=== PATIENT | male | born 1960 | race Caucasian/White ===

== ENCOUNTER 2020-02-23 11:47 | Outpatient (REF) | payer OTHER, SELFPAY | END 2020-02-23 11:48 | disposition home or self-care (01) | LOC: HO.LNP 11:47 | PROVIDERS: Visit Provider Internal Medicine | DX: Z20.828 Contact with and (suspected) exposure to other viral communicable diseases (principal); R50.9 Fever, unspecified | CPT/HCPCS: 87635 ==

== ENCOUNTER 2021-04-10 14:35 | Outpatient (REF) | payer OTHER, SELFPAY ==
[2021-04-10 15:39] LABS: Influenza A PCR NEGATIVE (Negative); Influenza B PCR NEGATIVE (Negative); Resp Syncy Virus RNA Qual PCR NEGATIVE (Negative); SARS COV2 PCR INHOUSE NEGATIVE (Negative)
== END 2021-04-10 14:36 | disposition home or self-care (01) ==
LOC: HO.LNP 14:35
PROVIDERS: Visit Provider Internal Medicine
DX: R11.0 Nausea (principal); Z20.822 Contact with and (suspected) exposure to COVID-19
CPT/HCPCS: 0241U

== ENCOUNTER 2021-04-17 16:43 | Outpatient (REF) | payer OTHER, SELFPAY ==
--- NOTE | ~2021-04-17 | XR_ITS ---
EXAMINATION: XR CHEST CLINICAL INFORMATION: Cough. Hypertension. Rule out infiltrate. COMPARISON: Previous chest x-rays most recent July 2015 TECHNIQUE: 2 views of the chest were obtained. FINDINGS: The cardiac and mediastinal contours are normal. The lungs are clear. There is no pleural effusion or pneumothorax. There are degenerative changes of the spine. XR/XR chest 2V IMPRESSION: No evidence for acute disease in the chest.
[2021-04-17 16:57] LABS: MANUAL DIFF FLAG NO
[2021-04-17 18:13] LABS: Basophils Percent Auto 0.4 % (0-2); Eosinophils Absolute Auto 0.3 X10*3/uL (0.0-0.4); Eosinophils Percent Auto 2.7 % (0-4); Hematocrit 47.3 % (42.0-52.0); Hemoglobin 16.3 g/dl (14.0-18.0); Imm Gran Abs Auto 0.04 X10*3/uL (0.00-0.03); Imm Gran Pct Auto 0.4 % (0.0-0.4); Lymphocytes Absolute Auto 2.9 X10*3/uL (1.2-4.9); Lymphocytes Percent Auto 26.8 % (20-40); Mean Corpuscular HGB Conc 34.5 g/dl (31.0-36.0); Mean Corpuscular Hemoglobin 31.7 pg (27.0-33.0); Mean Platelet Volume 9.7 fL (9.4-12.4); Monocytes Absolute Auto 0.9 X10*3/uL (0.1-1.2); Monocytes Percent Auto 8.4 % (2-11); Neutrophils Absolute Auto 6.6 x10*3/uL (2.0-8.3); Neutrophils Percent Auto 61.3 % (45-73); Platelet Count 288 X10*3/uL (160-400); Red Blood Count 5.14 X10*6/uL (4.60-5.80); Red Cell Distribution Width 12.5 % (11.0-16.0); White Blood Count 10.7 X10*3/uL (4.8-10.8)
[2021-04-17 18:35] LABS: Alanine Aminotransferase 37 U/L (0-40); Albumin Level 4.6 g/dL (3.5-5.0); Alkaline Phosphatase 85 U/L (39-117); Anion Gap 14 (12-20); Aspartate Amino Transferase 27 U/L (5-37); Bilirubin Total 0.6 mg/dL (0.0-1.0); Blood Urea Nitrogen 24 mg/dL (9-16); C Reactive Protein 0.33 mg/dL (< or = 0.50); Carbon Dioxide 28 mmol/L (22-29); Chloride 104 mmol/L (96-108); Estimated Glomerular Filt Rate > 60; Glucose Random 92 mg/dL (60-115); Potassium 4.3 mmol/L (3.3-5.1); Sodium 142 mmol/L (135-145); Total Protein 7.3 g/dL (6.5-8.0)
[2021-04-17 18:58] LABS: Thyroid Stimulating Hormone 1.06 uIU/mL (0.32-4.0)
== END 2021-04-17 16:44 | disposition home or self-care (01) ==
LOC: HO.XRAY 16:43
PROVIDERS: PCP Internal Medicine; Visit Provider Internal Medicine
DX: R05.9 Cough, unspecified (principal); I10 Essential (primary) hypertension; R63.5 Abnormal weight gain
CPT/HCPCS: 36415; 71046; 80053; 84443; 85025; 86140

== ENCOUNTER → 2021-11-21 15:35 | Outpatient (REF) | payer OTHER, SELFPAY | LOC: HO.SL 15:35 | PROVIDERS: PCP Internal Medicine; Visit Provider Internal Medicine | DX: G47.33 Obstructive sleep apnea (adult) (pediatric) (principal); R06.83 Snoring; R40.0 Somnolence | CPT/HCPCS: 95806 ==

== ENCOUNTER 2022-08-02 16:56 | Outpatient (REF) | payer BC, SELFPAY ==
[2022-08-02 17:07] LABS: MANUAL DIFF FLAG NO
[2022-08-02 17:59] LABS: Basophils Absolute Auto 0.1 X10*3/uL (0.0-0.2); Basophils Percent Auto 0.9 % (0-2); Eosinophils Absolute Auto 0.3 X10*3/uL (0.0-0.4); Hematocrit 42.6 % (42.0-52.0); Hemoglobin 14.9 g/dl (14.0-18.0); Imm Gran Abs Auto 0.01 X10*3/uL (0.00-0.03); Imm Gran Pct Auto 0.1 % (0.0-0.4); Lymphocytes Absolute Auto 3.3 X10*3/uL (1.2-4.9); Lymphocytes Percent Auto 35.7 % (20-40); Mean Corpuscular Volume 88.6 fL (80.0-98.0); Mean Platelet Volume 9.6 fL (9.4-12.4); Monocytes Absolute Auto 0.9 X10*3/uL (0.1-1.2); Monocytes Percent Auto 9.9 % (2-11); Neutrophils Absolute Auto 4.7 x10*3/uL (2.0-8.3); Neutrophils Percent Auto 50.4 % (45-73); Platelet Count 337 X10*3/uL (160-400); Red Blood Count 4.81 X10*6/uL (4.60-5.80); Red Cell Distribution Width 11.9 % (11.0-16.0); White Blood Count 9.3 X10*3/uL (4.8-10.8)
[2022-08-02 18:04] LABS: Alanine Aminotransferase 36 U/L (0-40); Albumin Level 4.9 g/dL (3.5-5.0); Alkaline Phosphatase 83 U/L (39-117); Anion Gap 13 (12-20); Aspartate Amino Transferase 30 U/L (5-37); Bilirubin Total 0.8 mg/dL (0.0-1.0); Blood Urea Nitrogen 26 mg/dL (9-16); Calcium 9.7 mg/dL (8.4-10.2); Carbon Dioxide 25 mmol/L (22-29); Chloride 103 mmol/L (96-108); Estimated Glomerular Filt Rate > 60; Glucose Random 89 mg/dL (60-115); Potassium 4.2 mmol/L (3.3-5.1); Sodium 137 mmol/L (135-145); Total Protein 7.2 g/dL (6.5-8.0)
[2022-08-02 18:07] LABS: Estimated Average Glucose 100 mg/dL; Hemoglobin A1c % 5.1 %
== END 2022-08-02 16:57 | disposition home or self-care (01) ==
LOC: HO.LAB 16:56
PROVIDERS: PCP Internal Medicine; Visit Provider Internal Medicine
DX: I25.10 Atherosclerotic heart disease of native coronary artery without angina pectoris (principal); I10 Essential (primary) hypertension; R79.89 Other specified abnormal findings of blood chemistry
CPT/HCPCS: 36415; 80053; 83036; 85025

== ENCOUNTER 2023-04-07 12:23 | Emergency (ER) | payer BC, SELFPAY ==
--- NOTE | ~2023-04-07 | XR_ITS ---
EXAMINATION: XR LUMBOSACRAL SPINE CLINICAL INFORMATION: Low back pain 11/25/2012 COMPARISON: Lumbar spine radiographs 05/10/2022 and 11/25/2012 TECHNIQUE: Three views of the lumbosacral spine. FINDINGS: There is straightening of the lumbar spine. There is anterior fixation at L5-S1 with interbody device. No fractures or bony destructive lesions are seen. Some mild spondylitic endplate changes are present. There is minimal disc space narrowing at L4-L5. Degenerative changes are seen at T11-T12. Multiple surgical clips present in the left abdomen. XR/XR lumbar spine 2-3V IMPRESSION: Mild degenerative changes as described above. Anterior fixation at L5-S1. No interval change when compared to 05/10/2022
[2023-04-07 12:39] VITALS: BP 118/64; PULSE 68; RESP 18; TEMP 36.3; O2SAT 98; BMI 30.4
--- NOTE | 2023-04-07 12:43 | ED.GENADULT ---
HPI - General Adult General Chief complaint: Back Pain/Injury Stated complaint: back pain/ diff walking Time Seen by Provider: 04/07/23 12:45 Source: patient and RN notes reviewed Mode of arrival: ambulatory Limitations: no limitations History of Present Illness HPI narrative: This is a 62-year-old male, with a history of back pain, SD with stent placement in February on prasugrel, presenting to the emergency department with complaints of acute on chronic low back pain since yesterday. Patient reports that he is currently being followed by [facility] and has a consultation with them on April 18 and anticipation for surgery in April. patient reports that he was at work yesterday lifting however does not remember specific lifting episode that would cause him to have this pain. He states that his pain gradually worsened over the course of last night. patient reports mid back pain that radiates down his posterior legs just inferior to his bilateral knees. Pain is constant and worsens with movement and with palpation. He states that this morning his pain has been severe and he is only able to take several steps without severe pain. He denies any saddle anesthesia. No urinary or bowel retention or incontinence. No fevers, chills, chest pain, shortness breast, abdominal pain, nausea, vomiting or diarrhea. Denies taking any medications at home to treat his current symptoms. He is currently on a pain patch which has been keeping his back pain within reasonable limits since November. No other complaints or concerns at this time. MD complaint: Back pain Onset (ago): day(s) Radiation: back Severity: moderate Quality: stabbing and aching Pain Consistency: constant Relieving factors: none Exacerbating factors: immobilization and movement Associated symptoms: denies other symptoms Treatments prior to arrival: none Related Data Home Medications Medication Instructions Recorded Confirmed fluoxetine 20 mg capsule 20 mg PO DAILY 10/31/21 losartan 50 mg tablet 50 mg PO DAILY 10/31/21 simvastatin 20 mg tablet 20 mg PO DAILY 10/31/21 testosterone 1 pump topical DAILY 10/31/21 Previous Rx's Medication Instructions Recorded acetaminophen 500 mg tablet 500 mg PO Q6H PRN pain #45 tabs 04/07/23 (Tylenol Extra Strength) oxycodone 5 mg tablet 5 mg PO Q6H PRN pain #10 tabs 04/07/23 prednisone 50 mg tablet 50 mg PO DAILY 5 days #5 tabs 04/07/23 Allergies Allergy/AdvReac Type Severity Reaction Status Date / Time Sulfa (Sulfonamide Allergy Unknown RASH Verified 04/07/23 12:38 Antibiotics) [SULFA(SULFONAMIDE ANTIBIOTICS)] Sulfo Lo Allergy Severe Hives Uncoded 01/11/22 16:00 Review of Systems Review of Systems: Yes all other systems are reviewed and are negative [facility] Past Medical History Attestation statement: The following information was validated with the patient. Medical History Retrognathia Social History Social History Patient Tobacco Use Status: Never used Tobacco Smoked in Last 30 Days: No Use of substances other than those prescribed or required for medical reasons: No Advance Directives: No Advance Directives Information Provided: No Physical Exam ED Vital Signs: Vital Signs - 24 hr 04/07/23 16:48 04/07/23 16:49 Temperature 99.0 F Pulse Rate 70 Respiratory Rate 16 16 Blood Pressure 112/70 Pulse Oximetry 98 Oxygen Delivery Method Room Air BMI result Body Mass Index 30.4 Const Other: General: Awake, alert, and oriented X3. No acute distress. HEENT: Normal inspection CVS: Normal heart rate and rhythm. Pulses normal. Respiratory: No respiratory distress Skin: Warm, dry, no rashes noted to exposed skin. Normal skin color. Normal skin turgor. Extremities: Normal to inspection Back: lumbar midline spine tenderness with left-sided lumbar paraspinous muscle tenderness with spasms noted. Patellar reflexes 2+. Distal sensation circulation intact. 5/5 strength and lower extremities bilaterally Rectal exam: Performed with chapereone present, Jane, flight technician. Good rectal tone, sensation intact. Neuro: Oriented X 3. No motor deficit. No sensory deficit. Course Course Course Narrative: RME: 62 yold male with chronic back pain exacerbation presents to the ED for back pain with inability of to walk because of pain. pastient states no URinary or bowel incontinence. Xray of lumbar spien ordered. Patient has spinal surgery scheduled for end of april. Reevaluation(s) Reevaluation #1: Patient able to ambulate with walker. Long discussion with patient in regards to staying overnight to see Case Management and Physical therapy however patient feels comfortable going home. Patient has no red flag back symptoms to stay the night. Or have emergent MRI. I discussed return precautions. Patient understands and agrees with plan. Patient urged to call Neurosurgery tomorrow morning for follow-up. Time: 18:28 Medications Administered Discontinued Medications Generic Name Dose Route Start Last Admin Trade Name Sandhya PRN Reason Stop Dose Admin Diazepam 2 mg 04/07/23 14:15 04/07/23 14:29 Diazepam 2 Mg Tablet PO 04/07/23 14:16 2 mg ONCE ONE Administration Morphine Sulfate 4 mg 04/07/23 16:44 04/07/23 16:49 Morphine Sulfate 4 Mg/Ml Cartridge IM 04/07/23 16:45 4 mg ONCE ONE Administration Protocol Oxycodone HCl 5 mg 04/07/23 14:15 04/07/23 14:29 Oxycodone Hcl Immed Release 5 Mg Tablet PO 04/07/23 14:16 5 mg ONCE ONE Administration Prednisone 50 mg 04/07/23 14:15 04/07/23 14:28 Prednisone 10 Mg Tablet PO 04/07/23 14:16 50 mg ONCE ONE Administration Medical Decision Making Medical Decision Making MDM Narrative: this is a 62-year-old male, with a history of chronic back pain, presented to the emergency department for evaluation of acute on chronic back pain worsening since last night. Patient reports that he has had difficulty walking secondary to the pain. X-ray of his lumbar spine was ordered which revealed mild degenerative changes and anterior fixation at L5-S1 no interval change when compared to previous. given pain, with notable tenderness palpation along the lumbar and thoracic spine, and paraspinous with spasm, patient will benefit from being medicated with Valium p.o., oxycodone, and prednisone. Will re-evaluate to ensure patient is able to ambulate prior to departure. Differential Diagnosis Differential Diagnoses: The differential diagnosis associated with the presentation includes Sciatica, disc herniation, lumbar spine muscle spasm, cauda equina-unlikely, Admission/Observation Consideration of admission/observation: Escalation of care including admission/observation considered escalation of care including admission observation was considered given patient's difficulty to ambulate prior to Discharge Plan Discharge Clinical Impression: Acute exacerbation of chronic low back pain Patient Disposition: Home, Self-Care Instructions: Back Pain (ED) Additional Instructions: please take prescribed medication as directed. Prednisone is a steroid, take this tomorrow as you have already received a dose today. Take Tylenol as directed. Take oxycodone as needed for severe pain only. Please be advised that this can cause drowsiness, do not drink alcohol or drive while taking this medication. Please call your neurosurgeon tomorrow. If any new or worsening symptoms occur including but not limited to numbness and tingling into your groin, urinary or bowel retention or incontinence, please return immediately to the emergency room. Prescriptions: New prednisone 50 mg tablet 50 mg PO DAILY 5 Days Qty: 5 0RF oxycodone 5 mg tablet 5 mg PO Q6H PRN (Reason: pain) Qty: 10 0RF Rx Instructions: Partial Fill upon patient request. acetaminophen [Tylenol Extra Strength] 500 mg tablet 500 mg PO Q6H PRN (Reason: pain) Qty: 45 0RF No Action fluoxetine 20 mg capsule 20 mg PO DAILY losartan 50 mg tablet 50 mg PO DAILY simvastatin 20 mg tablet 20 mg PO DAILY testosterone 20.25 mg/1.25 gram (1.62 %) gel in metered-dose pump 1 pump topical DAILY Rx Instructions: apply 1 pump amount over max area of ONE upper arm and shoulder Interventions: ED Discharge Assessment Last Done: 04/07/23 18:41 Discharge Date/Time: 04/07/23 18:42
[2023-04-07] MEDS: predniSONE 10 MG TABLET 50 MG PO (14:28)
[2023-04-07] MEDS: diazePAM 2 MG TABLET PO (14:29)
[2023-04-07] MEDS: oxyCODONE HCl Immed Release 5 MG TABLET PO (14:29)
[2023-04-07 16:48] VITALS: BP 112/70; PULSE 70; RESP 16; TEMP 37.2; O2SAT 98
[2023-04-07 16:49] VITALS: RESP 16
[2023-04-07] MEDS: Morphine Sulfate 4 MG/ML CARTRIDGE IM (16:49)
== END 2023-04-07 18:42 | disposition home or self-care (01) ==
PROVIDERS: Emergency Provider Student in an Organized Health Care Education/Training Program; PCP Internal Medicine
DX: M54.50 Low back pain, unspecified (principal); M79.605 Pain in left leg; M79.604 Pain in right leg; Z79.899 Other long term (current) drug therapy
CPT/HCPCS: 72100; 96372; 99284; J2270

== ENCOUNTER 2023-05-06 16:04 | Outpatient (REF) | payer BC, SELFPAY ==
[2023-05-06 16:21] LABS: MANUAL DIFF FLAG NO
[2023-05-06 17:53] LABS: Basophils Absolute Auto 0.1 X10*3/uL (0.0-0.2); Basophils Percent Auto 0.5 % (0-2); Eosinophils Absolute Auto 0.3 X10*3/uL (0.0-0.4); Eosinophils Percent Auto 3.3 % (0-4); Hematocrit 49.9 % (42.0-52.0); Hemoglobin 17.4 g/dl (14.0-18.0); Imm Gran Abs Auto 0.04 X10*3/uL (0.00-0.03); Imm Gran Pct Auto 0.4 % (0.0-0.4); Lymphocytes Absolute Auto 3.4 X10*3/uL (1.2-4.9); Lymphocytes Percent Auto 35.5 % (20-40); Mean Corpuscular HGB Conc 34.9 g/dl (31.0-36.0); Mean Corpuscular Hemoglobin 30.2 pg (27.0-33.0); Mean Corpuscular Volume 86.6 fL (80.0-98.0); Mean Platelet Volume 9.5 fL (9.4-12.4); Monocytes Absolute Auto 1.1 X10*3/uL (0.1-1.2); Monocytes Percent Auto 11.8 % (2-11); Neutrophils Absolute Auto 4.6 x10*3/uL (2.0-8.3); Neutrophils Percent Auto 48.5 % (45-73); Platelet Count 318 X10*3/uL (160-400); Red Blood Count 5.76 X10*6/uL (4.60-5.80); Red Cell Distribution Width 12.1 % (11.0-16.0); White Blood Count 9.5 X10*3/uL (4.8-10.8)
[2023-05-06 17:58] LABS: Alanine Aminotransferase 57 U/L (0-40); Albumin Level 4.5 g/dL (3.5-5.0); Alkaline Phosphatase 73 U/L (39-117); Anion Gap 14 (12-20); Aspartate Amino Transferase 45 U/L (5-37); Bilirubin Total 0.5 mg/dL (0.0-1.0); Blood Urea Nitrogen 20 mg/dL (9-16); Calcium 10.1 mg/dL (8.4-10.2); Carbon Dioxide 31 mmol/L (22-29); Chloride 101 mmol/L (96-108); Estimated Glomerular Filt Rate > 60; Glucose Random 87 mg/dL (60-115); Potassium 3.5 mmol/L (3.3-5.1); Sodium 142 mmol/L (135-145); Total Protein 7.2 g/dL (6.5-8.0)
== END 2023-05-06 16:05 | disposition home or self-care (01) ==
LOC: HO.LAB 16:04
PROVIDERS: PCP Internal Medicine; Visit Provider Internal Medicine
DX: Z01.818 Encounter for other preprocedural examination (principal); M54.9 Dorsalgia, unspecified
CPT/HCPCS: 36415; 80053; 85025

== ENCOUNTER 2023-05-30 16:55 | Outpatient (REF) | payer BC, SELFPAY ==
--- NOTE | ~2023-05-30 | XR_ITS ---
EXAMINATION: XR CHEST CLINICAL INFORMATION: Cough, shortness of breath. COMPARISON: Chest radiograph 04/17/2021. TECHNIQUE: 2 views of the chest were obtained. FINDINGS: Unchanged appearance of the cardiomediastinal silhouette. Coronary artery stents are seen. Stable mild asymmetric elevation of the right hemidiaphragm. No focal airspace opacities, pleural effusion or pneumothorax. No acute osseous findings. Visualized upper abdomen is within normal limits. XR/XR chest 2V IMPRESSION: 1. No acute cardiopulmonary findings. 2. Coronary artery stents are visualized.
== END 2023-05-30 16:56 | disposition home or self-care (01) ==
LOC: HO.XRAY 16:55
PROVIDERS: PCP Internal Medicine; Visit Provider Internal Medicine
DX: R05.9 Cough, unspecified (principal)
CPT/HCPCS: 71046

== ENCOUNTER 2023-11-04 10:27 | Day surgery (SDC) | payer BC, SELFPAY ==
[2023-10-31 13:30] VITALS: BMI 30.4
[2023-11-04 10:56] VITALS: BP 128/87; PULSE 75; RESP 18; TEMP 36.6; O2SAT 97; BMI 30.8
--- NOTE | 2023-11-04 11:11 | HO.ANESPROP2 ---
HPI - Anesthesia Eval Consult details Narrative: 63yo male patient for EGD, Colonoscopy [facility] Active Problems Active Problems: All Active Problems Somnolence, daytime (Acute) DEANNE (obstructive sleep apnea) (Acute). Not using CPAP. Cannot tolerate Retrognathia (Acute) CAD. Stent x 2. On baby aspirin. Denies recent chest pain Past Medical History Medical History Bowel obstruction GERD (gastroesophageal reflux disease) Elevated cholesterol Diverticulitis DEANNE (obstructive sleep apnea) HTN (hypertension) Myocardial infarction Retrognathia Family History Family history of problems with anesthesia: No Surgical History Surgical History Hx of eye surgery History of right cataract surgery Hx of nasal septoplasty Hx of spinal surgery H/O colonoscopy History of Problems with Anesthesia: No Social History Social History Household Members: Spouse Patient Tobacco Use Status: Never used Tobacco Advance Directives: No Advance Directives Information Provided: Yes Meds Allergies Allergy/AdvReac Type Severity Reaction Status Date / Time Sulfa (Sulfonamide Allergy Intermediate RASH Verified 10/31/23 13:30 Antibiotics) [SULFA(SULFONAMIDE ANTIBIOTICS)] ticagrelor [From Brilinta] Allergy Shortness Verified 11/04/23 11:14 of Breath Active Medications: Current Medications Sodium Biphosphate/Sodium Phosphate (Sodium Phosphate,Mower-Dibasic 133 Ml Enema) 133 ml CA ONCE PRN PRN Reason: Poor Colonoscopy Prep Results Home Medications ?Medication ?Instructions ?Recorded ?Confirmed ?Last Taken ?Type fluoxetine 20 mg capsule 20 mg PO DAILY 10/31/21 10/31/23 Unknown History losartan 50 mg tablet 50 mg PO DAILY 10/31/21 10/31/23 Unknown History testosterone 1 pump topical DAILY 10/31/21 10/31/23 Unknown History amlodipine 10 mg tablet 10 mg PO DAILY 10/31/23 10/31/23 11/04/23 History aspirin 81 mg tablet,delayed 81 mg PO DAILY 10/31/23 10/31/23 11/01/23 History release atorvastatin 80 mg tablet 80 mg PO BEDTIME 10/31/23 10/31/23 Unknown History carvedilol 12.5 mg tablet 12.5 mg PO BID 10/31/23 10/31/23 11/04/23 History eplerenone 25 mg tablet 25 mg PO DAILY 10/31/23 10/31/23 Unknown History fenofibrate micronized 43 mg 43 mg PO QPM 10/31/23 10/31/23 Unknown History capsule icosapent ethyl 1 gram capsule 2 g PO BID 10/31/23 10/31/23 Unknown History lansoprazole 30 mg delayed 30 mg PO DAILY 10/31/23 10/31/23 Unknown History release,disintegrating tablet ranolazine 500 mg tablet,extended 500 mg PO BID 10/31/23 10/31/23 Unknown History release,12 hr Exam Height,Weight and Vital Signs: Height 5 ft 8 in Weight 91.8 kg Last Vital Signs Temp 97.9 F 11/04/23 10:56 Pulse 75 11/04/23 10:56 Resp 18 11/04/23 10:56 BP 128/87 11/04/23 10:56 Pulse Ox 97 11/04/23 10:56 O2 Del Method Room Air 11/04/23 10:56 Airway Mallampati Class: III TM Dist: >3cm Neck ROM: Full Loose/Missing/Broken Teeth: Yes (2 cracked teeth. Some caps- intact. Denies missing or loose teeth) Heart: RRR Lungs: CTAB Assessment and Plan Assessment Anesthesia Assessment: Anesthesia Plan Discussed and Chart Reviewed Final Anesthetic Review Family History of Problems with Anesthesia: No History of Problems with Anesthesia: No NPO: Yes ASA Class: III Final Preanesthetic Review: No Changes in Pt Med Stat, Meds/Allgs Chart Reviewed, Consent Obtained/Reviewed and Anes Risks/Benef Reviewed Patient Risk: Intermediate Procedure Risk: Low Assessment/Block/Sedation in SS: Assess/Block/Sedation-SS Anesthetic Plan Anesthetic Plan: TIVA Disposition: Standard PACU
[2023-11-04 12:54] VITALS: BP 93/59; PULSE 67; RESP 16; TEMP 36.3; O2SAT 96
--- NOTE | 2023-11-04 12:59 | P.BOP_ITS ---
Brief Operative Note Date of Service: 11/04/23 Pre-op diagnosis: GERD, Screening Post-op diagnosis: other (Hiatal hernia, Colon polyp) Procedure: EGD, Colonoscopy to the cecum and TI with hot snare polypectomy and placement of 1 Resolution clip at 20cm Surgeon: Zan Hall MD Anesthesia: MAC Was an Hotel Superintendent used for this Procedure?: No Estimated blood loss (mL): 0 Pathology: other (A. Polyp at 20cm) Condition: stable Disposition: PACU
[2023-11-04 13:09] VITALS: BP 116/75; PULSE 64; RESP 14; O2SAT 98
[2023-11-04 13:24] VITALS: BP 133/83; PULSE 70; RESP 15; TEMP 36.2; O2SAT 100
--- NOTE | 2023-11-04 23:43 | OP_ITS ---
DATE OF SERVICE: 11/04/2023 SURGEON: Zan Hall MD PREOPERATIVE DIAGNOSIS: POSTOPERATIVE DIAGNOSIS: PROCEDURE PERFORMED: Esophagogastroduodenoscopy and colonoscopy to the cecum and terminal ileum with hot snare polypectomy and placement of a single resolution clip. ESTIMATED BLOOD LOSS: COMPLICATIONS: ANESTHESIA: Medication used; monitored anesthesia care. ASSISTANTS: SPECIMENS: PREOPERATIVE DIAGNOSES: Gastroesophageal reflux, colorectal cancer screening. POSTOPERATIVE DIAGNOSES: Gastroesophageal reflux, colorectal cancer screening, small hiatal hernia, colon polyp, occasional diverticulosis, small internal hemorrhoids. INDICATION: The patient presents for evaluation of chronic gastroesophageal reflux and colorectal cancer screening. Full consent obtained from him for this, including risks of bleeding and perforation. DESCRIPTION OF PROCEDURE: The patient was placed in the left lateral decubitus position. The Olympus videogastroscope was passed in the posterior oropharynx and upper esophagus under direct vision. The scope was passed slowly into the distal esophagus. The gastroesophageal junction appeared at 38 cm. This area appeared regular and without any sign of esophagitis nor Jeffers mucosa. There was a minimal hiatal hernia. The scope was advanced to pylorus and the duodenum was cannulated to the descending portion. The duodenum including the bulb appeared normal without mass or ulceration. The scope was withdrawn back to the stomach. The gastric antrum and body appeared normal with good peristalsis. The scope was retroflexed visualizing the proximal stomach carefully which appeared normal, without any sign of mass or ulceration. There were several hyperplastic several mm in diameter polyps, which were not biopsied. Due to the fact that he has to go back on his aspirin and they obviously looked very benign and consistent with the common hyperplastic gastric polyps. The scope was withdrawn back to the esophagus. The esophageal mucosa appeared normal. The scope was withdrawn from the patient. He was turned around for colonoscopy. The digital rectal exam revealed no abnormalities. The Olympus videopediatric colonoscope was entered into the rectum and advanced easily to the cecum. Once in the cecum, I did identify normal-appearing cecal pouch with appendiceal orifice and a normal-appearing ileocecal valve. The terminal ileum was cannulated and appeared normal. Scope was withdrawn back in the colon. The entire cecum and ileocecal valve appeared normal. The scope was then slowly withdrawn assessing all mucosal surfaces carefully. Preparation was excellent. His anastomosis from his previous surgery was seen at approximately 25-30 cm and appeared normal without any sign of narrowing or inflammation. There were several diverticula proximal to that. The only polyp I visualized was seen at 20 cm. This was grossly adenomatous and approximately 8 mm in diameter. This was removed by hot snare polypectomy and recovered by suction. The polypectomy site appeared clean, without any sign of residual polyp nor bleeding. A single resolution clip was applied to the polypectomy site with good deployment and good hemostasis. I did not visualize any other polyps, colitis, or angiodysplasia. In the rectum, scope was retroflexed visualizing small internal hemorrhoids, but no other pathology. The rectal mucosa appeared normal. The scope was straightened and withdrawn from the patient. He tolerated both procedures well and was returned to recovery area in stable condition. IMPRESSION: 1. Colon polyp. 2. Occasional diverticulosis. 3. Internal hemorrhoids. 4. Normal anastomosis. 5. Small hiatal hernia. PLAN: The results of the biopsy will be checked. If assuming this is a tubular adenoma, I would recommend a followup coloscopy in 5 years. He was advised to resume his aspirin today. He was advised not to use any NSAIDs for least a week. He will continue his lansoprazole for his reflux, which he reports is working well for him. If things remain stable, he will otherwise see me on a p.r.n. basis. This has been discussed with his . MD LINDA Shipley/DURAN / [phone]
== END 2023-11-04 13:45 | disposition home or self-care (01) ==
PROVIDERS: PCP Internal Medicine; Visit Provider Internal Medicine
PROC: (CPT 43235; principal; 2023-11-04 11:40)
DX: K21.9 Gastro-esophageal reflux disease without esophagitis (principal); K31.7 Polyp of stomach and duodenum; K44.9 Diaphragmatic hernia without obstruction or gangrene; Z12.11 Encounter for screening for malignant neoplasm of colon; D12.5 Benign neoplasm of sigmoid colon; K63.89 Other specified diseases of intestine; K57.30 Diverticulosis of large intestine without perforation or abscess without bleeding; K64.8 Other hemorrhoids; I10 Essential (primary) hypertension; E78.5 Hyperlipidemia, unspecified
CPT/HCPCS: 43235; 45385; 88305; J2704

== ENCOUNTER 2024-03-19 10:58 | Outpatient (REF) | payer BC, SELFPAY ==
[2024-03-19 11:20] LABS: MANUAL DIFF FLAG NO
[2024-03-19 11:37] LABS: Basophils Absolute Auto 0.1 X10*3/uL (0.0-0.2); Basophils Percent Auto 0.6 % (0-2); Eosinophils Absolute Auto 0.2 X10*3/uL (0.0-0.4); Eosinophils Percent Auto 2.6 % (0-4); Hematocrit 47.9 % (42.0-52.0); Hemoglobin 16.9 g/dl (14.0-18.0); Imm Gran Abs Auto 0.03 X10*3/uL (0.00-0.03); Imm Gran Pct Auto 0.4 % (0.0-0.4); Lymphocytes Absolute Auto 3.2 X10*3/uL (1.2-4.9); Lymphocytes Percent Auto 39.2 % (20-40); Mean Corpuscular HGB Conc 35.3 g/dl (31.0-36.0); Mean Corpuscular Hemoglobin 31.5 pg (27.0-33.0); Mean Corpuscular Volume 89.2 fL (80.0-98.0); Mean Platelet Volume 9.4 fL (9.4-12.4); Monocytes Absolute Auto 0.7 X10*3/uL (0.1-1.2); Monocytes Percent Auto 9.1 % (2-11); Neutrophils Absolute Auto 3.9 x10*3/uL (2.0-8.3); Neutrophils Percent Auto 48.1 % (45-73); Platelet Count 267 X10*3/uL (160-400); Red Blood Count 5.37 X10*6/uL (4.60-5.80); Red Cell Distribution Width 12.3 % (11.0-16.0); White Blood Count 8.2 X10*3/uL (4.8-10.8)
[2024-03-19 12:14] LABS: Alanine Aminotransferase 54 U/L (0-40); Albumin Level 4.6 g/dL (3.5-5.0); Alkaline Phosphatase 71 U/L (39-117); Anion Gap 13 (12-20); Aspartate Amino Transferase 36 U/L (5-37); Bilirubin Total 1.1 mg/dL (0.0-1.0); Blood Urea Nitrogen 26 mg/dL (9-16); Calcium 10.5 mg/dL (8.4-10.2); Carbon Dioxide 30 mmol/L (22-29); Chloride 103 mmol/L (96-108); Cholesterol 151 mg/dL (<200); Estimated Glomerular Filt Rate > 60; Glucose Fasting 109 mg/dL (60-99); HDL Cholesterol 30 mg/dL (>40); LDL Cholesterol Calculated 76 mg/dL (<100); Potassium 4.2 mmol/L (3.3-5.1); Sodium 142 mmol/L (135-145); Total Protein 7.4 g/dL (6.5-8.0); Triglycerides 226 mg/dL (<150)
[2024-03-19 12:20] LABS: Free T4 (Free Thyroxine) 0.97 ng/dL (0.71-1.85); Thyroid Stimulating Hormone 1.46 uIU/mL (0.32-4.0); Vitamin D 25-OH Total 38.9 ng/mL (>30)
[2024-03-19 12:48] LABS: Folate 11.8 ng/mL (> or = 4.0); Vitamin B12 320 pg/mL (200-900)
== END 2024-03-19 10:59 | disposition home or self-care (01) ==
LOC: HO.LAB 10:58
PROVIDERS: PCP Internal Medicine; Visit Provider Internal Medicine
DX: I10 Essential (primary) hypertension (principal); E78.00 Pure hypercholesterolemia, unspecified; I25.10 Atherosclerotic heart disease of native coronary artery without angina pectoris; R53.83 Other fatigue
CPT/HCPCS: 36415; 80053; 80061; 82306; 82607; 82746; 84439; 84443; 85025

== ENCOUNTER 2024-04-23 14:36 | Outpatient (REF) | payer BC, SELFPAY ==
--- OUTSIDE RECORDS SUMMARY | 2024-04-29 04:06 | XMS_ITS ---
Author Name [facility] Organization Unknown History of Medication Use Medication Directions Dispensed Refills Start Date End Date Stat Icosapent Ethyl 1 g Cap TAKE TWO CAPSULES BY MOUTH TWICE A DAY 02/19/2024 active FLUoxetine (PROzac) 20 MG tablet Take 1 tablet (20 mg total) by mouth daily. 11/01/2023 active ondansetron (ZOFRAN) 4 MG tablet Take 1 tablet (4 mg total) by mouth 3 times daily (every 8 hours) as needed for nausea or vomiting. 11/01/2023 active ondansetron (ZOFRAN-ODT) 4 MG disintegrating tablet Take 1 tablet (4 mg total) by mouth 4 times daily (every 6 hours) as needed for nausea or vomiting. Place tablet on tongue to dissolve. 05/23/2023 active ketoconazole (NIZORAL) 2 % shampoo as needed. 04/24/2023 active losartan (COZAAR) 50 MG tablet Take 1 tablet (50 mg total) by mouth daily. 02/09/2023 active atorvastatin (LIPITOR) 80 MG tablet Take 1 tablet (80 mg total) by mouth daily. 05/11/2022 active baclofen (LIORESAL) 10 MG tablet Take 1 tablet (10 mg total) by mouth 2 (two) times a day as needed for muscle spasms. 04/12/2023 active chlorthalidone (HYGROTON) 25 MG tablet TAKE ONE TABLET BY MOUTH EVERY DAY 10/04/2022 active amLODIPine (NORVASC) 10 MG tablet Take 1 tablet (10 mg total) by mouth daily. 05/11/2022 aborted SUPPLY DME MISC LSO--wear as directed--surger y 05/16/23. 04/12/2023 active carvedilol (COREG) 12.5 MG tablet Take 1 tablet (12.5 mg total) by mouth 2 (two) times a day with meals. 07/04/2022 active losartan (COZAAR) 100 MG tablet every 24 hours. 05/11/2022 aborted fenofibrate (TRIGLIDE) 160 MG tablet fenofibrate 160 mg tablet TAKE ONE TABLET BY MOUTH EVERY DAY 05/11/2022 aborted gabapentin (NEURONTIN) 100 MG capsule Take 1 capsule (100 mg total) by mouth 3 (three) times a day. 05/23/2023 active sucralfate (CARAFATE) 1 GM/10ML suspension Take 10 mL (1 g total) by mouth 4 (four) times a day before meals and nightly. On an empty stomach. 06/07/2022 aborted aspirin enteric coated (ECOTRIN LOW STRENGTH) 81 MG EC tablet Take 1 tablet (81 mg total) by mouth every morning. Do not start before May 20, 2023. 05/11/2022 active amoxicillin (AMOXIL) 500 MG capsule Take 1 capsule (500 mg total) by mouth 2 times a day. x10 days 05/10/2023 active gadobutrol (GADAVIST) injection 10 mL 10 mL, Intravenous, Once in imaging, contrast, Starting on Sat06/19/22 at 1621, For 1 dose, Radiology Appointment 06/21/2022 completed oxyCODONE (ROXICODONE) 5 MG immediate release tablet Take 1 tablet (5 mg total) by mouth every 4 (four) hours as needed for severe pain. Max Daily Amount: 30 mg 05/23/2023 active oxyCODONE (ROXICODONE) 5 MG immediate release tablet 3 times daily (every 8 hours) as needed. 04/12/2023 active raNOLazine (raNEXa) 500 MG 12 hr tablet Take 1 tablet (500 mg total) by mouth twice daily (every 12 hours). Swallow tablet whole; do not crush, break, or chew. 06/07/2022 aborted chlorthalidone (HYGROTON) 25 MG tablet Take 1 tablet (25 mg total) by mouth daily. 08/30/2022 aborted gabapentin (NEURONTIN) 100 MG capsule Take 1 capsule (100 mg total) by mouth 3 (three) times a day. 05/23/2023 active sucralfate (CARAFATE) 1 GM/10ML suspension Take 10 mL (1 g total) by mouth 4 (four) times a day before meals and nightly. On an empty stomach. 06/07/2022 aborted Brilinta 90 MG tablet Take 1 tablet (90 mg total) by mouth 2 (two) times a day. 05/11/2022 aborted famotidine (PEPCID) 20 MG tablet Take 1 tablet (20 mg total) by mouth 2 (two) times a day. 06/07/2022 aborted predniSONE (DELTASONE) 50 MG tablet 04/12/2023 aborted fenofibrate micronized (ANTARA) 43 MG capsule TAKE ONE CAPSULE BY MOUTH EVERY DAY 09/13/2022 active simvastatin (ZOCOR) 20 MG tablet simvastatin 20 mg tablet TAKE ONE TABLET BY MOUTH EVERY DAY 05/11/2022 aborted eplerenone (INSPRA) 25 MG tablet Take 1 tablet (25 mg total) by mouth daily. 06/07/2022 active ticagrelor (Brilinta) 90 MG tablet Take 1 tablet (90 mg total) by mouth. 04/24/2023 aborted Buprenorphine (BUTRANS) 5 MCG/HR weekly patch Place 1 patch on the skin every 7 days. Max Daily Amount: 1 patch 12/20/2022 active Icosapent Ethyl (Vascepa) 1 g Cap Take 2 g by mouth 2 (two) times a day. 06/07/2022 active methylnaltrexone (RELISTOR) 150 MG tablet Take 3 tablets (450 mg total) by mouth every morning before breakfast. 01/30/2023 active lansoprazole (PREVACID) 30 MG capsule Take 1 capsule (30 mg total) by mouth 2 times a day. Take 1 tablet in am and 1 in the pm 07/04/2022 active FLUoxetine (PROzac) 20 MG capsule Take 1 capsule (20 mg total) by mouth every morning. 05/11/2022 active Testosterone 20.25 MG/1.25GM (1.62%) Gel Place on the skin every morning. 06/07/2022 active OMEprazole (PriLOSEC) 20 MG capsule ONE CAPSULE BY MOUTH ONCE A DAY 05/11/2022 aborted oseltamivir (TAMIFLU) 75 MG capsule 05/11/2022 aborted nitroglycerin (NITROSTAT) 0.[address] 0.3 mg under the tongue every 5 (five) minutes as needed. 05/11/2022 active carvedilol (COREG) 6.25 MG tablet Take 1 tablet (6.25 mg total) by mouth 2 (two) times a day. 05/11/2022 aborted Buprenorphine (BUTRANS) 20 MCG/HR weekly patch Place 1 patch on the skin every 7 days. Do not start before April 25, 2023. Max Daily Amount: 1 patch 01/05/2023 aborted lansoprazole (PREVACID) 30 MG capsule TAKE ONE CAPSULE BY MOUTH EVERY EVENING WITH DINNER 12/30/2022 active prasugrel (EFFIENT) 10 MG tablet Take 6 tablets day 1, then 1 tablet daily thereafter 06/07/2022 aborted methocarbamol (ROBAXIN) 1000 mg tablet Take 1 tablet (1,000 mg total) by mouth 4 (four) times a day. 05/23/2023 active senna-docusate (SENNA-S) 8.6-50 MG Take 2 tablets by mouth 2 (two) times a day. 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 active 2023-05-31 ProblemAct [facility] History of coronary angioplasty with insertion of stent active 2022-06-06 ProblemAct [facility] History of myocardial infarction active 2022-06-06 ProblemAct [facility] Chronic right-sided low back pain without sciatica active 2024-04-07 ProblemAct [facility] DEANNE (obstructive sleep apnea) active EncounterDiagnosisAct [facility] Mixed hyperlipidemia active 2022-06-06 ProblemAct [facility] Essential hypertension active 2022-06-06 ProblemAct [facility] Coronary artery disease involving [place] coronary artery of [place] heart without angina pectoris active 2022-09-07 ProblemAct [facility] T Abnormal auditory perception of both ears active EncounterDiagnosisAct [facility] Immunizations Vaccine Date Source Lot Number Status Influenza, Unspecified 01/18/2023 [facility] co mpleted
== END 2024-04-23 14:37 | disposition home or self-care (01) ==
LOC: HO.SH 14:36
PROVIDERS: Visit Provider Internal Medicine
DX: Z01.118 Encounter for examination of ears and hearing with other abnormal findings (principal); H90.3 Sensorineural hearing loss, bilateral
CPT/HCPCS: 92557